=== PATIENT | female | born 1940 | race Caucasian/White ===

== ENCOUNTER 2022-04-24 20:33 | Emergency (ER) | payer MEDICARE, BC ==
[2022-04-24] MEDS ORDERED: Lidocaine 1% 10 ML MDV INJECT ONE (20:55)
[2022-04-24] MEDS ORDERED: Orphenadrine 100 MG Tab.ER PO ONE (22:17)
[2022-04-24] MEDS ORDERED: Acetaminophen 325 MG Tab PO ONE (22:17)
== END 2022-04-24 22:47 | disposition home or self-care (01) ==
LOC: JD.ED 20:33
DX: S01.01XA Laceration without foreign body of scalp, initial encounter (principal); E78.00 Pure hypercholesterolemia, unspecified; I10 Essential (primary) hypertension; Z86.16 Personal history of COVID-19; Z79.899 Other long term (current) drug therapy; W18.09XA Striking against other object with subsequent fall, initial encounter; Y92.009 Unspecified place in unspecified non-institutional (private) residence as the place of occurrence of the external cause
CPT/HCPCS: 12001; 70450; 72100; 73502; 99284; A9270

== ENCOUNTER 2022-04-28 10:00 | Emergency (ER) | payer MEDICARE, BC ==
[2022-04-28] MEDS ORDERED: traMADol 50 MG Tab PO ONE ×2 (10:22→10:34)
[2022-04-28] MEDS ORDERED: HYDROmorphone 0.5 MG/0.5 ML Syringe IM ONE (10:34)
[2022-04-28] MEDS ORDERED: Metoclopramide 10 MG/2 ML SDV IM ONE (10:34)
== END 2022-04-28 13:20 | disposition home or self-care (01) ==
LOC: JD.ED 10:00
DX: M54.50 Low back pain, unspecified (principal); I10 Essential (primary) hypertension; Z79.899 Other long term (current) drug therapy
CPT/HCPCS: 72131; 96372; 99284; A9270; J1170; J2765

== ENCOUNTER 2022-05-01 05:13 | Inpatient (IN) | payer MEDICARE, BC ==
[2022-05-01] MEDS ORDERED: Sodium Chloride 0.9% 10 ML Syringe FLUSH PRN (05:49)
[2022-05-01] MEDS ORDERED: Sodium Chloride 0.9% 1,000 ML IV SCH (06:00)
[2022-05-01] MEDS ORDERED: Glycerin Adult 2 GM Supp RECTAL ONE (07:15)
[2022-05-01 07:40] LABS: ESTIMATED GFR > 60 mL/min (>60)
[2022-05-01] MEDS ORDERED: Iopamidol 612 MG/ML 100 ML Bottle IVPUSH ONE (08:01)
[2022-05-01] MEDS ORDERED: HYDROmorphone 0.5 MG/0.5 ML Syringe IVPUSH ONE ×3 (08:09→14:36)
[2022-05-01] MEDS ORDERED: Ondansetron 4 MG/2 ML SDV IVPUSH ONE (08:09)
[2022-05-01] MEDS: Sodium Chloride 0.9% 10 ML Syringe FLUSH PRN ×2 (08:21→08:41)
[2022-05-01] MEDS ORDERED: Magnesium Citrate Solution 296 ML Bottle PO ONE (10:07)
[2022-05-01] MEDS ORDERED: Metoclopramide 10 MG/2 ML SDV IVPUSH ONE ×2 (11:26→14:36)
[2022-05-01] MEDS ORDERED: Dextrose 5%-0.9% NaCl 1,000 ML IV SCH (11:30)
[2022-05-01] MEDS ORDERED: Mineral Oil 30 ML UD Cup PO ONE (15:30)
[2022-05-01] MEDS ORDERED: Magnesium Hydroxide 400 MG/5 ML Susp 30 ML Cup PO ONE (15:30)
[2022-05-01] MEDS: Diazepam 2 MG Tab PO PRN (16:03)
[2022-05-01] MEDS ORDERED: Acetaminophen/oxyCODONE 325-5 MG Tab PO PRN (16:39)
[2022-05-01] MEDS ORDERED: Acetaminophen 325 MG Tab PO PRN (16:39)
[2022-05-01] MEDS ORDERED: Ibuprofen 800 MG Tab PO PRN (16:39)
[2022-05-01] MEDS ORDERED: Polyethylene Glycol 3350 Powder 17 GM Packet PO PRN (16:39)
[2022-05-01] MEDS: Acetaminophen/HYDROcodone 325-5 MG Tab PO PRN (17:13)
[2022-05-01] MEDS ORDERED: Famotidine 20 MG Tab PO SCH (21:00)
[2022-05-02] MEDS: Acetaminophen/HYDROcodone 325-5 MG Tab PO PRN (00:20)
[2022-05-02] MEDS ORDERED: Enoxaparin 40 MG/0.4 ML Syringe SUBCUT SCH (09:00)
[2022-05-02] MEDS ORDERED: Ondansetron 4 MG Tab.DIS PO PRN (10:00)
[2022-05-02] MEDS: Diazepam 2 MG Tab PO PRN (10:24)
[2022-05-02] MEDS ORDERED: Lisinopril 10 MG Tab PO SCH (10:30)
[2022-05-02] MEDS ORDERED: Famotidine 20 MG Tab PO SCH (21:00)
== END 2022-05-02 14:50 | disposition home or self-care (01) | DRG 552 ==
LOC: JD.ED 05:13 → JD.MS 12:22
PROVIDERS: ADMIT Pediatrics; ATTEND Pediatrics
PROC: 02HV33Z Insertion of Infusion Device into Superior Vena Cava, Percutaneous Approach (ICD-10-PCS; principal; 2022-05-01)
DX: S32.019A Unspecified fracture of first lumbar vertebra, initial encounter for closed fracture (principal); K59.01 Slow transit constipation; S01.91XA Laceration without foreign body of unspecified part of head, initial encounter; E78.00 Pure hypercholesterolemia, unspecified; I10 Essential (primary) hypertension; Z79.899 Other long term (current) drug therapy; S32.019D Unspecified fracture of first lumbar vertebra, subsequent encounter for fracture with routine healing; W18.39XD Other fall on same level, subsequent encounter; M81.0 Age-related osteoporosis without current pathological fracture; M19.90 Unspecified osteoarthritis, unspecified site; N28.1 Cyst of kidney, acquired; K57.30 Diverticulosis of large intestine without perforation or abscess without bleeding; Z86.16 Personal history of COVID-19; Z98.51 Tubal ligation status; Z90.49 Acquired absence of other specified parts of digestive tract; W19.XXXA Unspecified fall, initial encounter
CPT/HCPCS: 36415; 74018; 74177; 80053; 81001; 84484; 85025; 86140; 93005; A9270 ×2; J1170; J2405; J3490 ×3; J7030; Q9967; 36410; 76937; 93010; 96374; 96375; 96376; 97110-GP; 97161-GP; 99284; 99285-25; J1650; J2765